=== PATIENT | male | born 1965 | race Caucasian/White ===

== ENCOUNTER 2019-04-12 13:38 | Emergency (ER) | payer OTHER, SELFPAY ==
[2019-04-12 13:46] VITALS: BP 149/94; PULSE 90; RESP 18; TEMP 36.9; O2SAT 95; BMI 32.0
--- NOTE | 2019-04-12 13:54 | DI.RAD.S_ITS ---
PROCEDURE: XR CHEST 2V INDICATIONS: L shoulder pain TECHNIQUE: 2 views of the chest were acquired. COMPARISON: None. FINDINGS: Surgical changes and devices: None. Lungs and pleura: Lungs are clear. No pleural effusions or pneumothorax. Mediastinum: Mediastinal contours are normal. Heart size is normal. Bones and chest wall: No suspicious bony abnormalities. Soft tissues appear unremarkable. IMPRESSION: No acute cardiopulmonary disease. Dictated by: Jorge Humphries M.D. on 04/12/2019 at 15:36 Approved by: Jorge Humphries M.D. on 04/12/2019 at 15:49
[2019-04-12 14:11] LABS: Add Manual Diff / Slide Review NO; Basophils Absolute Auto 0 /uL (0-100); Basophils Percent Auto 0.7 % (0-2); Eosinophils Absolute Auto 100 /uL (0-450); Eosinophils Percent Auto 0.7 % (2-4); Hematocrit 46.1 % (41-53); Hemoglobin 15.5 g/dL (13.5-17.5); Lymphocytes Absolute Auto 1500 /uL (1100-4500); Lymphocytes Percent Auto 20.3 % (25-40); Mean Corpuscular HGB Conc 33.6 % (30-36); Mean Corpuscular Hemoglobin 30.8 PG (26-34); Mean Corpuscular Volume 91.7 fL (80-100); Monocytes Absolute Auto 700 /uL (0-900); Neutrophils Absolute Auto 5100 /uL (1500-7000); Neutrophils Percent Auto 68.3 % (50-75); Platelet Count 238 X10^3/uL (150-400); Red Blood Cell Count 5.03 X10^6/uL (4.5-5.9); Red Cell Distribution Width 13.1 % (11.6-14.8); White Blood Cell Count 7.5 X10^3/uL (4.5-11.0)
[2019-04-12 14:18] LABS: Alanine Aminotransferase 42 IU/L (<50); Albumin 4.5 g/dL (3.5-5.0); Albumin Globulin Ratio 1.6 (1.0-2.8); Alkaline Phosphatase 59 U/L (38-126); Aspartate Aminotransferase 38 IU/L (17-59); Bilirubin Total 0.6 mg/dL (0.2-1.3); Blood Urea Nitrogen 24 mg/dL (9-20); Calcium 9.1 mg/dL (8.4-10.2); Carbon Dioxide 28 mmol/L (22-32); Chloride 105 mmol/L (98-107); Creatine Kinase 271 U/L (55-170); Estimated Glomerular Filt Rate > 60.0 mL/min (>60); Globulin 2.9 g/dL (1.7-4.1); Glucose 97 mg/dL (70-100); HEMOLYSIS < 15 (0-50); Lipase 48 U/L (23-300); Potassium 3.9 mmol/L (3.4-5.1); Sodium 139 mmol/L (137-145); Total Protein 7.4 g/dL (6.3-8.2)
[2019-04-12 14:29] LABS: Troponin I < 0.012 ng/mL (0.01-0.034)
[2019-04-12 14:33] LABS: CKMB % Relative Index 0.9 % (1.5-5.0); Creatine Kinase MB 2.39 ng/mL (<2.37)
[2019-04-12] MEDS: ASPIRIN 81 MG CHEW TAB 324 MG PO (14:37)
[2019-04-12 16:12] VITALS: BP 138/81; PULSE 88; RESP 14; O2SAT 99
--- NOTE | 2019-04-12 16:19 | ED.CHESTPAIN ---
HPI - Chest Pain <MEY Mcmullen - Last Filed: 04/13/19 00:05> General Chief Complaint: Chest Pain Stated Complaint: SHOULDER/ARM/CHEST PAIN Time Seen by Provider: 04/12/19 13:54 Source: patient Mode of arrival: Ambulatory Limitations: no limitations History of Present Illness HPI narrative: This is a 54 year male, nonsmoker, who presents to ED with chief complain of persistent and continuous left shoulder which radiates down to his wrist in characteristics like tight, squeezing, aching pain for last 4 days that radiates to left-sided chest and neck. Patient was referred to ED from [facility] for further evaluation. Patient has been having intermittent left-sided posterior neck pain which radiates to shoulder and triceps from pinched nerve but this pain has been different in character. He denies any associated symptoms such as short of breath, dizziness, nausea vomiting or cold sweats. Patient does not regularly exercises but he works for a [employer]. Patient is not able to find any associated aggravating and relieving factors such as rest or exertion. However, when patient used ice pack on the affected area, pain improved as compared to when he used warm pack noticed increased his pain. When pain is were worse patient rates as 7/10 and currently pain is down to 1/10. Patient has history of hypertension and cholesterol. Patient's father with major [place] at age 46. Related Data Home Medications Medication Instructions Recorded Confirmed Vitamin D3 4,000 unit PO DAILY #0 12/17/16 04/12/19 omeprazole 20 mg PO DAILY #0 12/17/16 04/12/19 pravastatin [Pravachol] 40 mg PO QPM #0 12/17/16 04/12/19 vitamin E 400 unit PO DAILY #0 12/17/16 04/12/19 amlodipine 5 mg PO DAILY 04/12/19 04/12/19 aspirin 81 mg PO DAILY 04/12/19 04/12/19 Allergies Allergy/AdvReac Type Severity Reaction Status Date / Time Penicillins [PENICILLINS] Allergy Severe SWELLING Verified 04/12/19 13:46 Rpvtizu-Igl-Shk Reductase Allergy Unknown MUSCLE Verified 04/12/19 13:46 Inhibitor ACHES [[id number] REDUCTASE INHIBITOR] Review of Systems <MEY Mcmullen - Last Filed: 04/13/19 00:05> Review of Systems Narrative: General: Denies fever, chills, fatigue, malaise, sweats. HEENT: Denies sinus pain, ear pain, sore throat, difficulty swallowing, dizziness. Respiratory: Denies dyspnea, cough, wheezing, hemoptysis, sputum. Cardiovascular: See HPI Gastrointestinal: Denies nausea, vomiting, abdominal pain, diarrhea, constipation, melena. : Denies dysuria, frequency, incontinence, hematuria, urinary retention. Musculoskeletal: See HPI Skin: Denies rash, skin lesions, or other. Neurologic: Denies weakness, headache, numbness, change in speech, confusion, seizures, incoordination. Psychiatric: No concerning psychosocial issues. 12-point review of systems is negative except for those stated above. Patient History <MEY Mcmullen - Last Filed: 04/13/19 00:05> Family History (Updated 04/12/19 @ 18:01 by MEY Mcmullen) Father No problems noted. Social History Smoking Status: Never smoker Substance Use Type: does not use Exam <MEY Mcmullen - Last Filed: 04/13/19 00:05> Narrative Exam Narrative: GEN: Alert, oriented x 3, well appearing and nourished, and in no acute distress. Head: Normal cephalic, atraumatic. No scalp or temporal tenderness, palpable mass or rash. EYES: Pupils are equal, round, and reactive to light and accommodation. Extraocular muscles are intact bilaterally. There is no subconjunctival hemorrhage, exudate and sclera non-icteric. ENT: Bilateral auditory canals and tympanic membranes clear. Hearing grossly intact. Nose without bleeding, purulent discharge or deviation. Facial sinuses nontender to palpate. Mucous membrane moist, no mucosal lesion. Throat without erythema, tonsillar hypertrophy or exudate. Uvula in midline, airway patent. Neck: Trachea in midline. No JVD, non-tender without lymphadenopathy. No masses or thyroid megaly. Supple, non-tender and no meningeal signs. CARDIAC: Normal regular rate and rhythm without murmurs, gallops, or rubs. No chest wall tenderness. No peripheral edema, cyanosis or pallor. Capillary refill is less than 2 seconds. RESPIRATORY: Lungs are clear to auscultate bilaterally. No cough, wheezes, rales, or rhonchi. No stridor, respiratory distress, increase work of breathing, or accessary muscle used. ABD: Abdomen soft, nontender and non-distended. No guarding or rebound tenderness to palpate. Bowel sounds are normal in all 4 quadrants. There is no palpable masses or organomegaly. EXT: Full painless ROM of all extremities with no loss of sensation, strength, effusion or edema. SKIN: Warm, dry, normal color for patient. No erythema, lesions or rash over visible areas. BACK: Nontender without deformity or crepitance. No flank tenderness. NEUROLOGICAL: Alert and oriented to place, time and person. Sensation and motor function intact bilaterally. No facial droops, dysphasia. PSYCHIATRIC: Good judgement and reason, without hallucinations, abnormal affect or abnormal behaviors during the examination. Patient is not suicidal. Initial Vital Signs Initial Vital Signs: Vital Signs Temperature 98.4 F 04/12/19 13:46 Pulse Rate 90 04/12/19 13:46 Respiratory Rate 18 04/12/19 13:46 Blood Pressure 149/94 H 04/12/19 13:46 Pulse Oximetry 95 04/12/19 13:46 <Nadira Lozoya MD - Last Filed: 04/14/19 07:00> Initial Vital Signs Initial Vital Signs: Vital Signs Temperature 98.4 F 04/12/19 13:46 Pulse Rate 90 04/12/19 13:46 Respiratory Rate 18 04/12/19 13:46 Blood Pressure 149/94 H 04/12/19 13:46 Pulse Oximetry 95 04/12/19 13:46 Scores <MEY Mcmullen - Last Filed: 04/13/19 00:05> HEART Score Heart Score history: Slightly Suspicious Heart Score EKG: Non-Specific repolarization disturbance Heart Score Age: 45-64 years old Heart Score risk factors: 1-2 risk factors Heart Score troponin: < or = to normal limit Heart Score Total: 3 Course <MEY Mcmullen - Last Filed: 04/13/19 00:05> Orders Ordered: Discontinued Medications Aspirin (Aspirin Chew) 324 mg PO NOW ONE Stop: 04/12/19 13:55 Last Admin: 04/12/19 14:37 Dose: 324 mg Documented by: MMERKEL Sodium Chloride (Normal Saline 0.9%) 1,000 mls @ 150 mls/hr IV CONT LIAM Last Infusion: 04/12/19 18:56 Dose: 0 mls/hr Documented by: Infusion: 04/12/19 18:41 Dose: 150 mls/hr Documented by: Admin: 04/12/19 16:32 Dose: 150 mls/hr Documented by: [facility] Consultations Consultation #1: Dr. Matt, legal services professional, consulted and discussed physical findings, lab results and EKG. Dr. Matt gave guidance that since patient's pain is persistent and constant for last 4 days it is unlikely cardiac related and patient could follow-up out patiently with stress test versus intermittent discomfort warrants observation admission and stress test tomorrow. Time: 18:20 Vital Signs Vital signs: Vital Signs - 8 hr 04/12/19 16:12 04/12/19 17:08 04/12/19 17:30 Pulse Rate 88 79 76 Respiratory Rate 14 15 12 Blood Pressure [Right Arm] 138/81 121/80 124/73 Pulse Oximetry 99 98 97 04/12/19 18:30 Pulse Rate 77 Respiratory Rate 12 Blood Pressure [Right Arm] 130/75 Pulse Oximetry 98 <Nadira Lozoya MD - Last Filed: 04/14/19 07:00> Orders Ordered: Discontinued Medications Aspirin (Aspirin Chew) 324 mg PO NOW ONE Stop: 04/12/19 13:55 Last Admin: 04/12/19 14:37 Dose: 324 mg Documented by: MMERKEL Sodium Chloride (Normal Saline 0.9%) 1,000 mls @ 150 mls/hr IV CONT LIAM Last Infusion: 04/12/19 18:56 Dose: 0 mls/hr Documented by: Infusion: 04/12/19 18:41 Dose: 150 mls/hr Documented by: Admin: 04/12/19 16:32 Dose: 150 mls/hr Documented by: [facility] Vital Signs Vital signs: Vital Signs - 8 hr 04/12/19 16:12 04/12/19 17:08 04/12/19 17:30 Pulse Rate 88 79 76 Respiratory Rate 14 15 12 Blood Pressure [Right Arm] 138/81 121/80 124/73 Pulse Oximetry 99 98 97 04/12/19 18:30 Pulse Rate 77 Respiratory Rate 12 Blood Pressure [Right Arm] 130/75 Pulse Oximetry 98 MDM - Chest Pain <Drew Johnie-ShaanMEY - Last Filed: 04/13/19 00:05> Differential Diagnosis Differential diagnosis: Likely unstable angina pectoris, atypical chest pain and other (cervical radiculopathy) Medical Records Data Attestation: I reviewed the patient's medical records. Lab Data Attestation: I reviewed the patient's lab results. Result diagrams: 04/12/19 13:56 04/12/19 13:56 Labs: Lab Results 04/12/19 04/12/19 04/12/19 Range/Units 13:56 13:56 16:55 WBC 7.5 (4.5-11.0) X10^3/uL RBC 5.03 (4.5-5.9) X10^6/uL Hgb 15.5 (13.5-17.5) g/dL Hct 46.1 (41-53) % MCV 91.7 (80-100) fL MCH 30.8 (26-34) PG MCHC 33.6 (30-36) % RDW 13.1 (11.6-14.8) % Plt Count 238 (150-400) X10^3/uL Neut % (Auto) 68.3 (50-75) % Lymph % (Auto) 20.3 L (25-40) % Emmet % (Auto) 10.0 (3-14) % Eos % (Auto) 0.7 L (2-4) % Baso % (Auto) 0.7 (0-2) % Neut # (Auto) 5100 (1512-9906) /uL Lymph # (Auto) 1500 (6052-0942) /uL Emmet # (Auto) 700 (0-900) /uL Eos # (Auto) 100 (0-450) /uL Baso # (Auto) 0 (0-100) /uL Sodium 139 (137-145) mmol/L Potassium 3.9 (3.4-5.1) mmol/L Chloride 105 (98-107) mmol/L Carbon Dioxide 28 (22-32) mmol/L BUN 24 H (9-20) mg/dL Creatinine 0.80 (0.66-1.25) mg/dL Estimated GFR > 60.0 (>60) mL/min BUN/Creatinine Ratio 30.0 H (6-22) Glucose 97 (70-100) mg/dL Calcium 9.1 (8.4-10.2) mg/dL Total Bilirubin 0.6 (0.2-1.3) mg/dL AST 38 (17-59) IU/L ALT 42 (<50) IU/L Alkaline Phosphatase 59 (38-126) U/L Total Creatine Kinase 271 H 232 H (55-170) U/L CK-MB (CK-2) 2.39 H 2.22 (<2.37) ng/mL CK-MB (CK-2) Rel Index 0.9 L 1.0 L (1.5-5.0) % Troponin I < 0.012 < 0.012 (0.01-0.034) ng/mL Total Protein 7.4 (6.3-8.2) g/dL Albumin 4.5 (3.5-5.0) g/dL Globulin 2.9 (1.7-4.1) g/dL Albumin/Globulin Ratio 1.6 (1.0-2.8) Lipase 48 (23-300) U/L Imaging Data Chest x-ray: Radiologist's impression: [place] [address] XRay Report Signed Patient: Derick Mcmillan [facility]#: [id number] : 1965Acct:[id number] Age/Sex: 54 / MDate of Service: 04/12/19 Loc: ED Accession Number: [id number] Procedure: XR chest 2V Ordering Provider: Drew Sagastume PROCEDURE: XR CHEST 2V INDICATIONS: L shoulder pain TECHNIQUE: 2 views of the chest were acquired. COMPARISON: None. FINDINGS: Surgical changes and devices: None. Lungs and pleura: Lungs are clear. No pleural effusions or pneumothorax. Mediastinum: Mediastinal contours are normal. Heart size is normal. Bones and chest wall: No suspicious bony abnormalities. Soft tissues appear unremarkable. IMPRESSION: No acute cardiopulmonary disease. Dictated by: Jorge Humphries M.D. on 04/12/2019 at 15:36 Approved by: Jorge Humphries M.D. on 04/12/2019 at 15:49 ECG Data Attestation: I personally reviewed and interpreted this ECG as follows: Prior ECG tracings: not available for review Interpretation: #1. Sinus rhythm rate at 91, Incomplete right bundle branch block terminal R-wave in V1/V2. Borderline L axis deviation #2. Sinus rhythm rate at 77. Borderline L axis deviation No ST elevation or depression. MDM Narrative Medical decision making narrative: This is a 54 year old male who presented to ED with constant L shoulder/arm cramping, tight, squeezing like pain radiating to wrist for last 4 days w/o any other associated symptoms after he was referred from the clinic. EKG was obtained at the time which was normal SR. The clinician was concerned since the patient's pain characteristic are different from his previous pinched nerve discomfort. Patient has significant [place] history in his father side. He has a factor as hypertension and hyperlipidemia. The patient's HEART score is 3 (low score). EKG showed no ST elevation or depression with normal troponin with unremarkable CK-MB initially. Repeated 3 hour post EKG with the cardiac enzymes which were unremarkable. Patient reports his discomfort has been 1/10 while in ED. He was medicated with full dose of aspirin while in ED and takes baby aspirin additionally. Acquisition Professional was consulted and was informed that his discomfort is less likely cardiac origin since pain is persistent and constant for last 4 days with normal troponin and EKG. I shared this information with the patient and EKG and lab test results. Patient advised close follow-up with his primary care physician for further evaluation such as treadmill test which can be scheduled outpatient. Strict return precautions were discussed with the patient and advised to continue to take daily aspirin. Patient verbalized understanding and agrees with the treatment plan. No further questions were expressed at this time. <Nadira Lozoya MD - Last Filed: 04/14/19 07:00> Lab Data Labs: Lab Results 04/12/19 04/12/19 04/12/19 Range/Units 13:56 13:56 16:55 WBC 7.5 (4.5-11.0) X10^3/uL RBC 5.03 (4.5-5.9) X10^6/uL Hgb 15.5 (13.5-17.5) g/dL Hct 46.1 (41-53) % MCV 91.7 (80-100) fL MCH 30.8 (26-34) PG MCHC 33.6 (30-36) % RDW 13.1 (11.6-14.8) % Plt Count 238 (150-400) X10^3/uL Neut % (Auto) 68.3 (50-75) % Lymph % (Auto) 20.3 L (25-40) % Emmet % (Auto) 10.0 (3-14) % Eos % (Auto) 0.7 L (2-4) % Baso % (Auto) 0.7 (0-2) % Neut # (Auto) 5100 (8570-4569) /uL Lymph # (Auto) 1500 (3718-3947) /uL Emmet # (Auto) 700 (0-900) /uL Eos # (Auto) 100 (0-450) /uL Baso # (Auto) 0 (0-100) /uL Sodium 139 (137-145) mmol/L Potassium 3.9 (3.4-5.1) mmol/L Chloride 105 (98-107) mmol/L Carbon Dioxide 28 (22-32) mmol/L BUN 24 H (9-20) mg/dL Creatinine 0.80 (0.66-1.25) mg/dL Estimated GFR > 60.0 (>60) mL/min BUN/Creatinine Ratio 30.0 H (6-22) Glucose 97 (70-100) mg/dL Calcium 9.1 (8.4-10.2) mg/dL Total Bilirubin 0.6 (0.2-1.3) mg/dL AST 38 (17-59) IU/L ALT 42 (<50) IU/L Alkaline Phosphatase 59 (38-126) U/L Total Creatine Kinase 271 H 232 H (55-170) U/L CK-MB (CK-2) 2.39 H 2.22 (<2.37) ng/mL CK-MB (CK-2) Rel Index 0.9 L 1.0 L (1.5-5.0) % Troponin I < 0.012 < 0.012 (0.01-0.034) ng/mL Total Protein 7.4 (6.3-8.2) g/dL Albumin 4.5 (3.5-5.0) g/dL Globulin 2.9 (1.7-4.1) g/dL Albumin/Globulin Ratio 1.6 (1.0-2.8) Lipase 48 (23-300) U/L Discharge Plan Departure Patient Disposition: Home Clinical Impression: Cervical radiculopathy, Atypical chest pain Discharge Date/Time: 04/12/19 18:56 Instructions: DI for Atypical Chest Pain, DI for Cervical Radiculopathy Activity Restrictions/Additional Instructions: You have been diagnosed with [atypical chest pain and cervical radiculopathy. Your EKGs did not show obvious MIs and blood tests were unremarkable. I discussed your case with Dr. Matt, the account resolution analyst legal services professional. ]. What to do: *Take your medications as directed. No new medications to go home from today's visit. Please continue to take baby aspirin daily. *Follow up with your primary care provider in 2-3 days, call for an appointment. Let them know you were seen in the ED and that we asked you to be seen in follow up. You need follow-up with stress test that could be arranged outpatiently. *Return to ED if you have any new, worsening, or concerning symptoms, such as [worsening or different chest pain, breathing difficulty, nausea or vomiting, cold sweats, feeling fainting, unable to tolerate medications, or any acute concerns]. Prescriptions: No Action omeprazole 20 MG capsule,delayed release(DR/EC) 20 mg PO DAILY Qty: 0 RF: 0 pravastatin [Pravachol] 40 MG tablet 40 mg PO QPM Qty: 0 RF: 0 vitamin E 400 UNIT capsule 400 unit PO DAILY Qty: 0 RF: 0 Vitamin D3 4,000 UNIT capsule 4,000 unit PO DAILY Qty: 0 RF: 0 amlodipine 5 mg Tablet 5 mg PO DAILY RF: 0 aspirin 81 mg Tablet,Delayed Release (Dr/Ec) 81 mg PO DAILY RF: 0 Referrals: Herbert Presley MD [Non-Staff] -
[2019-04-12] MEDS: SODIUM CHLORIDE 0.9% 1,000 ML 150 ML IV (16:32)
[2019-04-12 17:08] VITALS: BP 121/80; PULSE 79; RESP 15; O2SAT 98
[2019-04-12 17:15] LABS: Creatine Kinase 232 U/L (55-170)
[2019-04-12 17:28] LABS: Troponin I < 0.012 ng/mL (0.01-0.034)
[2019-04-12 17:30] VITALS: BP 124/73; PULSE 76; RESP 12; O2SAT 97
[2019-04-12 17:30] LABS: Creatine Kinase MB 2.22 ng/mL (<2.37)
[2019-04-12 18:30] VITALS: BP 130/75; PULSE 77; RESP 12; O2SAT 98
== END 2019-04-12 18:56 | disposition home or self-care (01) ==
PROVIDERS: Emergency Provider Nurse Practitioner Family
DX: M54.12 Radiculopathy, cervical region (principal); R07.89 Other chest pain; I10 Essential (primary) hypertension; E78.5 Hyperlipidemia, unspecified; M25.512 Pain in left shoulder
CPT/HCPCS: 36415; 71046; 80053; 82550; 82553; 83690; 84484; 85025; 93005; 99284; 99285

== ENCOUNTER → 2019-10-17 16:04 | Outpatient (CLI) | payer OTHER, SELFPAY ==
[2019-10-18 09:09] LABS: COVID19 Sendout NOT DETECTED (Not Detect)
== END ==
PROVIDERS: Visit Provider Registered Nurse
DX: Z01.812 Encounter for preprocedural laboratory examination (principal)
CPT/HCPCS: 87635

== ENCOUNTER → 2019-10-20 14:37 | Outpatient (CLI) | payer OTHER, SELFPAY ==
--- NOTE | 2019-10-20 15:56 | PM.TREADMILL ---
Cardiac Stress Test Report Referral & Results Date Patient Seen: 10/20/19 Time Patient Seen: 15:56 Requesting provider: Herbert Presley Indication: chest pain Rest ECG: sinus rhythm Procedure Note: Standard Domingo protocol, 10:00; 10.7 mets Fair exercise capacity, CORRY -2% Normal hemodynamic response to exercise but hypertensive at baseline No chest pain or anginal symptoms No significant ST changes; no ectopy Impression: normal exercise stress test Please note: Actual ECG tracings can be found in the PACS system.
== END ==
PROVIDERS: PCP Internal Medicine; Referring Provider Internal Medicine; Visit Provider Internal Medicine
DX: R07.9 Chest pain, unspecified (principal)
CPT/HCPCS: 93017

== ENCOUNTER → 2020-10-30 14:40 | Outpatient (CLI) | payer OTHER, SELFPAY ==
--- NOTE | 2020-10-30 14:41 | DI.US.S_ITS ---
PROCEDURE: US EXTREMELY NONVASC UPPER RT INDICATIONS: RIGHT ELBOW/FOREARM PAIN AND LOCALIZED SWELLING TECHNIQUE: Real-time scanning was performed of the forearm , with image documentation. COMPARISON: None. FINDINGS: No areas of mass lesion, fluid collection or defined mass is identified. IMPRESSION: No focal fluid collection is identified. However, if concern persists, CT is recommended. Dictated by: Shayla Richardson M.D. on 10/31/2020 at 10:38 Approved by: Shayla Richardson M.D. on 10/31/2020 at 10:39
== END ==
PROVIDERS: PCP Internal Medicine; Referring Provider Physician Assistant Medical; Visit Provider Physician Assistant Medical
DX: M25.521 Pain in right elbow (principal); M79.631 Pain in right forearm; M25.421 Effusion, right elbow
CPT/HCPCS: 76882

== ENCOUNTER → 2020-11-30 14:59 | Outpatient (CLI) | payer OTHER, SELFPAY ==
--- NOTE | 2020-11-30 | DI.MRI.S_ITS ---
PROCEDURE: MR FOREARM RT WO CON INDICATIONS: Other rupture of muscle, right forearm TECHNIQUE: Noncontrast coronal and sagittal T1 spin echo and STIR; axial T1 spin echo and T2 fast spin echo with fat saturation through the right forearm. COMPARISON: None. FINDINGS: Image quality: There is motion artifact limiting evaluation. Bones: The visualized bone marrow demonstrates normal overall signal. No abnormal marrow edema or fractures. The overlying cortex appears intact. No fractures lines or intra-osseous lesions. Soft tissues: There is tendinopathy of the common extensor tendon with mild partial tearing proximally. There is associated peritendinous edema and fluid. Findings are consistent with lateral epicondylitis. The scanned muscles demonstrate normal overall bulk and internal signal. IMPRESSION: 1. Tendinopathy of the common extensor tendon with mild partial tearing proximally as well as peritendinous fluid and edema. Findings are consistent with lateral epicondylitis. 2. Elsewhere in the visualized forearm, no muscle strains or tendon rupture identified. Dictated by: Jimmie Yap M.D. on 12/02/2020 at 11:32 Approved by: Jimmie Yap M.D. on 12/02/2020 at 11:37
== END ==
PROVIDERS: PCP Internal Medicine; Referring Provider Physician Assistant Medical; Visit Provider Physician Assistant Medical
DX: M79.601 Pain in right arm (principal); M62.13 Other rupture of muscle (nontraumatic), forearm
CPT/HCPCS: 73218

== ENCOUNTER → 2022-03-19 14:43 | Outpatient (CLI) | payer OTHER, SELFPAY ==
--- NOTE | 2022-03-19 14:45 | DI.ECHO.S_ITS ---
[facility]---------+ [facility] +---------+ : : [address] : : : : [id number] : : : : Phone: [phone] Echocardiogram Report + + :Name: ADAL TURNER Study Date: 03/19/2022 Height: 73 in : :[facility] ReadingLocation: Weight: 240 lb : : Gender: Male BSA: 2.3 m2 : :: 1965 Age: 57 yrs BP: 168/108 mmHg: :Reason For Study: Palpitations : :Ordering Physician: MILDRED, : :LYRIC Performed By: Brent Daniels : :Referring: LYRIC LEVY : + + Interpretation Summary The ejection fraction is estimated to be 50-55%. There is mild aortic regurgitation. There is trace tricuspid regurgitation. Procedure: A two-dimensional transthoracic echocardiogram with color flow and Doppler was performed. The study quality was technically adequate. There is no prior echocardiogram noted for this patient. The patient was in normal sinus rhythm during the exam. Left Ventricle: The left ventricle is normal in size and wall thickness. Left ventricular systolic function is low normal. The ejection fraction is estimated to be 50-55%. There are no focal wall motion abnormalities. Diastolic parameters suggest probable normal left ventricular diastolic function and normal filling pressures. Right Ventricle: The right ventricle is normal in size and function. Atria: Both atria are normal in size. The interatrial septum grossly appears intact with no obvious evidence for an atrial septal defect. Mitral Valve: The mitral valve is normal in structure and function. There is no mitral regurgitation noted. Aortic Valve: The aortic valve is normal in structure and function. There is mild aortic regurgitation. Tricuspid Valve: The tricuspid valve is normal in structure and function. There is trace tricuspid regurgitation. Pulmonary artery pressures cannot be estimated because of the lack of a measurable TR jet velocity. Pulmonic Valve: The pulmonic valve is normal in structure and function. There is no pulmonic valvular regurgitation. Great Vessels: The aortic root is normal size. The dimensions of the ascending aorta are normal. The inferior vena cava was not well visualized. Pericardium/ Pleura There is no pericardial effusion. There is no pleural effusion. MMode/2D Measurements & Calculations LVIDd: 5.7 cm LVOT diam: 2.4 cm LVIDs: 4.2 cm Ao root diam: 3.1 cm FS: 26.3 % asc Aorta Diam: 3.3 cm IVSd: 1.1 cm LVPWd: 1.0 cm LV mckeon. diameter/BSA (cm/m^2): 2.5 LV sys. diameter/BSA (cm/m^2): 1.8 LA dimension: 4.2 cm RA long axis: 5.5 cm LA A2 area: 22.6 cm2 RA area: 17.6 cm2 LA A4 area: 21.9 cm2 RA vol: 48.2 ml LA length (vol): 6.2 cm RA : 20.7 ml/m2 LA vol: 67.9 ml LA vol index: 29.2 ml/m2 TAPSE_phl: 2.4 cm Doppler Measurements & Calculations Ao V2 max: 134.0 cm/sec LVOT Max Enrique: 99.2 cm/sec Ao V2 mean: 101.0 cm/sec LV V1 max P.9 mmHg Ao max P.0 mmHg LV V1 VTI: 21.2 cm Ao mean P.0 mmHg GEOVANNA(I,D): 3.6 cm2 Ao V2 VTI: 26.9 cm GEOVANNA(V,D): 3.3 cm2 sev ratio: 0.79 GEOVANNA indexed to BSA (cm^2/m^2): 1.5 MV E max enrique: 64.3 cm/sec SV(LVOT): 95.9 ml MV A max enrique: 80.1 cm/sec MV E/A: 0.80 Med Peak E' Enrique: 7.8 cm/sec E/E' med: 8.2 Lat Peak E' Enrique: 11.0 cm/sec E/E' lat: 5.8 E/e' average: 7.0 MV dec time: 0.25 sec AV VR_phl: 0.74 MV P1/2t-pr_phl: 73.0 msec GEOVANNA(VTI)/BSA_phl: 1.5 Reading Physician:12:16 PM
== END ==
PROVIDERS: PCP Internal Medicine; Referring Provider Physician Assistant; Visit Provider Physician Assistant
DX: I35.1 Nonrheumatic aortic (valve) insufficiency (principal); R00.2 Palpitations
CPT/HCPCS: 93306